=== PATIENT | male | born 1995 | race Caucasian/White ===

== ENCOUNTER 2016-05-09 16:34 | Emergency (ER) | payer MEDICAID ==
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
[2016-05-09 17:44] LABS: BASOPHIL % 0.3 %; EOSINOPHIL # 0.1 K/uL (0.0-0.5); EOSINOPHIL % 0.9 %; HEMATOCRIT 41.9 % (37.0-53.0); HEMOGLOBIN 14.8 g/dL (12.0-17.0); IMMATURE GRANULOCYTE # 0.1 K/uL (0.0-0.3); IMMATURE GRANULOCYTE % 0.5 %; LYMPHOCYTE % 9.1 %; MCH 30.1 pg (27.0-34.0); MCHC 35.3 gm/dL (32.0-36.5); MCV 85.2 fl (83.0-98.0); MONOCYTE % 8.7 %; MPV 10.1 fl (9.4-12.4); NEUTROPHIL # (ANC) 9.2 K/uL (1.4-9.0); NEUTROPHIL % 80.5 %; NRBC % 0 /100WBC (0-0.00); PLATELET COUNT 179 K/uL (150-450); RBC 4.92 M/uL (4.00-6.00); RDW-CV 11.9 % (11.9-14.6); WBC 11.5 K/uL (4.0-11.0)
[2016-05-09 18:06] LABS: ALBUMIN 3.9 gm/dL (3.5-5.0); ALK PHOS 67 IU/L (33-138); ALT 20 IU/L (12-78); ANION GAP 11.7 (10.0-19.0); AST 17 IU/L (10-40); BLOOD UREA NITROGEN 19 mg/dL (6-24); CALCIUM 8.6 mg/dL (8.5-10.5); CHLORIDE 106 mMol/L (96-110); CO2 27 mMol/L (22-32); CREATININE 0.8 mg/dL (0.6-1.3); ESTIMATED GFR (MDRD EQUATION) > 60; POTASSIUM 3.7 mMol/L (3.7-5.1); SODIUM 141 mMol/L (135-145); TOTAL PROTEIN 7.5 g/dL (6.0-8.4)
[2016-05-09 18:16] LABS: TOTAL BILIRUBIN 0.4 mg/dL (0.0-1.5)
[2016-05-09 18:31] LABS: BILIRUBIN URINE NEGATIVE (NEGATIVE); BLOOD URINE NEGATIVE /UL (NEGATIVE); COLOR URINE YELLOW (YELLOW); GLUCOSE URINE NEGATIVE (NEGATIVE); KETONE URINE NEGATIVE (NEGATIVE); LEUKOCYTES URINE NEGATIVE /UL (NEGATIVE); NITRITE URINE NEGATIVE (NEGATIVE); PROTEIN URINE NEGATIVE (NEGATIVE); TURBIDITY URINE CLEAR (CLEAR); UROBILINOGEN URINE NORMAL (NORMAL)
[2016-05-09 18:44] LABS: BARBITURATE NEGATIVE (NEGATIVE); COCAINE NEGATIVE (NEGATIVE); OPIATES NEGATIVE (NEGATIVE)
[2016-05-09 18:47] LABS: AMPHETAMINE NEGATIVE (NEGATIVE)
== END 2016-05-09 19:08 | disposition disaster alternative care site (69) ==
LOC: GMED 16:34
PROVIDERS: Family Medicine
DX: R11.2 Nausea with vomiting, unspecified (principal)
CPT/HCPCS: G0480